=== PATIENT | male | born 1950 | race Caucasian/White ===

== ENCOUNTER 2018-03-21 10:12 | Inpatient (IN) | payer MEDICARE, BC ==
[~2018-03-21] VITALS: Ht 170.2 cm; Wt 66.7 kg
--- NOTE | 2018-03-21 10:15 | NUR ---
AAOX3 C/O SOB AND CHEST PAIN SINCE TUESDAY, TACHYPNEIC, PATIENT APPEARS ANXIOUS AT THIS TIME. SKIN IS WARM AND DRY. PLACED ON THE MONITOR. STARTED IVHL RAC 18G. DR DURANT AT FOR EVAL. PATIENT PLACED ON NR AT 15L/MIN.
[2018-03-21 10:26] LABS: BASOPHILS % (AUTO) 0.6 % (0.0-2.0); EOSINOPHILS % (AUTO) 10.3 % (0.0-6.0); HEMATOCRIT 49 % (39-51); HEMOGLOBIN 16.5 g/dL (13.5-17.5); LYMPHOCYTES # (AUTO) 1.4 /CMM (0.8-4.8); LYMPHOCYTES % (AUTO) 19.4 % (20.0-44.0); MEAN CORPUSCULAR HGB CONC 34 g/dl (31.0-36.0); MEAN CORPUSCULAR VOLUME 88 fL (80-96); MONOCYTES # (AUTO) 0.8 /CMM (0.1-1.30); MONOCYTES % (AUTO) 11.1 % (2.0-12.0); NEUTROPHILS # (AUTO) 4.1 /CMM (1.8-8.9); NEUTROPHILS % (AUTO) 58.6 % (43.0-81.0); PLATELET COUNT (AUTO) 267 /CMM (150-450); RDW COEFFICIENT OF VARIATION 12.7 (11.5-15.0); RED BLOOD CELL COUNT(AUTO) 5.53 MIL/uL (4.5-6.0)
[2018-03-21 10:30] VITALS: BP 137/106
[2018-03-21] MEDS ORDERED: ASPIRIN 325 MG TABLET PO ONE (10:30)
[2018-03-21] MEDS ORDERED: ENALAPRILAT INJ (1.25 MG/ML) 1.25 MG/ML VIAL IV PRN (10:30)
[2018-03-21 10:40] LABS: CHLORIDE 104 mmol/L (98-107); INR 0.95 (0.85-1.15); POTASSIUM 3.9 mmol/L (3.5-5.1); SODIUM SERUM 137 mmol/L (136-145)
[2018-03-21] MEDS ORDERED: AMOX-430 PO (10:42)
[2018-03-21] MEDS ORDERED: TRAM50TA2 PO (10:42)
[2018-03-21] MEDS ORDERED: DULO60CA45 PO (10:42)
[2018-03-21] MEDS ORDERED: MIRT15TA7 PO (10:42)
[2018-03-21] MEDS ORDERED: GABA-534 PO (10:42)
--- NOTE | 2018-03-21 10:42 | NUR ---
RT RECD PT ON ROOM AIR WITH SHORTNESS OF BREATH PLACED ON BIPAP PER MD ORDERS ST 15/ 30% RATE 12. CHULA WELL PT COMFORTABLE NO RESP DISTRESS ATT WILL CONTINUE TO MONITOR Addendum: 03/21/18 at 1045 by RONY OTOOLE RT Amended: Links added.
[2018-03-21 10:44] LABS: ALANINE AMINOTRANSFERASE 22 U/L (12-78); ALBUMIN 3.6 g/dL (3.4-5.0); ALKALINE PHOSPHATASE 94 U/L (46-116); ASPARTATE AMINOTRANSFERASE 23 U/L (15-37); BILIRUBIN,DIRECT 0.1 mg/dL (0.0-0.2); BILIRUBIN,TOTAL 0.4 mg/dL (0.2-1.0); CARBON DIOXIDE 26 mmol/L (21-32); GLUCOSE 136 mg/dL (74-106); LIPASE 115 U/L (73-393); TOTAL PROTEIN, SERUM 7.8 g/dL (6.4-8.2); UREA NITROGEN, BLOOD 11 mg/dL (7-18)
[2018-03-21] MEDS ORDERED: ENALAPRILAT DIHYD. (2.5MG/ML) 1.25 MG/ML VIAL IV ONE (10:44)
[2018-03-21] MEDS ORDERED: ASPIRIN 325 MG TABLET ONE (10:44)
[2018-03-21 10:47] LABS: TROPONIN I < 0.017 ng/mL (0.00-0.056)
--- NOTE | 2018-03-21 11:08 | NUR ---
PANEL ON-CALL PAGED
[2018-03-21] MEDS ORDERED: ALBUTEROL FS 2.5 MG/3 ML VIAL.NEB ONE (11:18)
[2018-03-21] MEDS ORDERED: IPRATROPIUM NEB FS 0.5 MG/2.5 ML AMPUL.NEB ONE (11:18)
[2018-03-21] MEDS ORDERED: IPRATROPIUM NEB FS 0.5 MG/2.5 ML AMPUL.NEB NEB ONE (11:30)
[2018-03-21] MEDS ORDERED: ALBUTEROL FS 2.5 MG/3 ML VIAL.NEB NEB ONE (11:30)
[2018-03-21] MEDS ORDERED: methylPREDNISolone SOD SUCC 125 MG/2ML VIAL IV ONE (11:30)
[2018-03-21] MEDS ORDERED: methylPREDNISolone SOD SUCC 125 MG/2ML VIAL ONE (11:31)
--- NOTE | 2018-03-21 11:46 | NUR ---
CALLED NURSING ANALYTICS SENIOR MANAGER AND REQUESTED A TELE RM FOR THIS PT.
--- NOTE | 2018-03-21 11:48 | NUR ---
PANEL VASCULAR TECH WAS REPAGED
--- NOTE | 2018-03-21 12:01 | NUR ---
ASSIGNED TO TELE #: [id number] DX: CHEST PAIN ACCEPTING MD: DR LAWSON
--- NOTE | 2018-03-21 12:27 | NUR ---
Report given to accountant certified public [id number] for DWIGHT.
--- NOTE | 2018-03-21 12:50 | NUR ---
MENHADEN VESSEL PILOTTEACHER THEATER ARTS NOTES RECEIVED PT FROM ER NURSE IN STABLE CONDITION. NO SOB OR SIGNS OF DISTRESS NOTED. BREATHING IS EVEN AND UNLABORED. PT IS SR ON THE TELE MONITOR WITH A HR OF 83. HE DENIES ANY CHEST PAIN AT THIS TIME. SKIN INTACT. IVS NOTED TO BE PATENT AND INTACT. PT ORIENTED TO ROOM. BED IN LOW LOCKED POSITION, SIDE RAILS UP X2, CALL LIGHT WITHIN REACH. WILL CONTINUE TO MONITOR.
[2018-03-21] MEDS ORDERED: Z GUARD REMEDY 2 OZ OINT TP PRN (13:30)
[2018-03-21] MEDS ORDERED: HYDROCODONE/APAP 5/325MG 1 EACH TABLET PO PRN (13:30)
[2018-03-21] MEDS ORDERED: ONDANSETRON HCL/PF 4 MG/2 ML VIAL IVP PRN (13:30)
[2018-03-21] MEDS ORDERED: ZOLPIDEM TARTRATE 5 MG TABLET PO PRN (13:30)
[2018-03-21] MEDS ORDERED: MAG HYDROX/AL HYDROX/SIMETH 30 ML UDC PO PRN (13:30)
[2018-03-21] MEDS ORDERED: MAGNESIUM HYDROXIDE 30 ML UDC PO PRN (13:30)
[2018-03-21] MEDS ORDERED: ACETAMINOPHEN 325 MG TABLET PO PRN (13:30)
[2018-03-21 16:00] VITALS: BP 89/53
[2018-03-21] MEDS: GABAPENTIN 300 MG CAPSULE PO SCH (17:41)
[2018-03-21] MEDS: ALBUTEROL FS 2.5 MG/3 ML VIAL.NEB NEB PRN (17:51)
[2018-03-21] MEDS: IPRATROPIUM NEB FS 0.5 MG/2.5 ML AMPUL.NEB NEB PRN (17:51)
--- NOTE | 2018-03-21 18:56 | NUR ---
MS RN CLOSING NOTES PT REMAINS STABLE. NO COMPLAINTS OF CHEST PAIN THROUGHOUT SHIFT. HE REMAINS SR ON THE TELE MONITOR. HE DID EXPERIENCE SOME DIFFICULTY BREATHING HOWEVER IT WAS RELIEVED AFTER HIS PRN BREATHING TX. SAFETY MEASURES REMAIN IN PLACE. AT BEDSIDE. WILL ENDORSE TO NIGHTSHIFT NURSE FOR DWIGHT
--- NOTE | 2018-03-21 19:50 | NUR ---
JEWELRY SETTER NOTE: PATIENT RESTING IN BED, NO ACUTE DISTRESS NOTED, FAMILY AT BEDSIDE. BREATHING EVEN AND UNLABORED, NO SOB NOTED. IV TO RAC AND LAC IN PLACE. PATIENT DENIES ANY CHEST PAIN AT THIS TIME. BED LOCKED AND IN LOWEST POSITION, CALL LIGHT IN REACH. WILL CONTINUE TO MONITOR.
[2018-03-21 20:00] VITALS: BP 110/75
[2018-03-21] MEDS: TRAMADOL HCL 50 MG TABLET PO PRN (21:17)
--- NOTE | 2018-03-21 21:30 | NUR ---
ICE SCULPTOR NOTE: PATIENT COMPLAINS OF PAIN TO BACK 06/26, ULTRAM 50MG 1 TAB ORAL GIVEN PER MD ORDER. WILL CONTINUE TO MONITOR.
[2018-03-21] MEDS ORDERED: MIRTAZAPINE 15 MG TABLET PO SCH (22:00)
[2018-03-21] MEDS ORDERED: ENOXAPARIN SODIUM 40 MG/0.4 ML DISP.SYRIN SQ SCH (23:00)
[2018-03-21] MEDS ORDERED: BENZONATATE 100 MG CAPSULE PO PRN (23:00)
--- NOTE | 2018-03-21 23:15 | NUR ---
MARKETING GRAPHICS SPECIALIST NOTE: PATIENT COMPLAINS OF COUGH, SPOKE TO CUSTOMS ENTRY CLERK , JESSICA VILLAREAL, DIONNA AND RECEIVED NEW ORDERS FOR TESSALON PERLE 100MG 1 TAB ORAL TID NEEDED. ALSO RECEIVED ORDER FOR LOVENOX 40 MG SUBCUTANEOUS DAILY. ORDER NOTED AND CARRIED OUT. WILL CONTINUE TO MONITOR.
[2018-03-22] VITALS: BP 114/76
--- NOTE | 2018-03-22 00:35 | NUR ---
CARGO AND CONTAINER INSPECTOR NOTE: PATIENT REQUEST FOR SLEEPING MEDICATION, AMBIEN 5MG 1 TAB ORAL GIVEN PER MD ORDER. WILL CONTINUE TO MONITOR.
[2018-03-22 04:00] VITALS: BP 96/66
--- NOTE | 2018-03-22 06:30 | NUR ---
AIRBORNE SENSOR SPECIALIST NOTE: PATIENT RESTING IN BED, NO ACUTE DISTRESS NOTED. BREATHING EVEN AND UNLABORED, NO SOB NOTED. IV TO RAC AND LAC IN PLACE. PATIENT COMPLAINS OF COUGH, TESSALON 100MG 1CAP ORAL GIVEN PER MD ORDER. BED LOCKED AND IN LOWEST POSITION, CALL LIGHT IN REACH. WILL ENDORSE TO DAY NURSE TO CONTINUE WITH PLAN OF CARE.
[2018-03-22 07:24] LABS: BASOPHILS % (AUTO) 0.1 % (0.0-2.0); HEMATOCRIT 43 % (39-51); HEMOGLOBIN 14.4 g/dL (13.5-17.5); LYMPHOCYTES # (AUTO) 0.9 /CMM (0.8-4.8); LYMPHOCYTES % (AUTO) 10.2 % (20.0-44.0); MEAN CORPUSCULAR HGB CONC 34 g/dl (31.0-36.0); MEAN CORPUSCULAR VOLUME 89 fL (80-96); MONOCYTES # (AUTO) 0.8 /CMM (0.1-1.30); NEUTROPHILS # (AUTO) 7.3 /CMM (1.8-8.9); NEUTROPHILS % (AUTO) 80.7 % (43.0-81.0); PLATELET COUNT (AUTO) 246 /CMM (150-450); RDW COEFFICIENT OF VARIATION 13.3 (11.5-15.0); RED BLOOD CELL COUNT(AUTO) 4.77 MIL/uL (4.5-6.0)
[2018-03-22 07:34] LABS: CALCIUM, SERUM 8.7 mg/dL (8.5-10.1); CREATININE 0.8 mg/dL (0.6-1.3); MAGNESIUM 1.9 mg/dL (1.8-2.4); PHOSPHORUS 3.7 mg/dL (2.5-4.9); POTASSIUM 4.5 mmol/L (3.5-5.1)
--- NOTE | 2018-03-22 07:44 | NUR ---
MSRN NOTES. PT TELE SR 98. PT NPO STATUS REMOVED BY MD RUSSELL AND TEL D/C'D. PT RECEIVED A&0X3, AWAKE AND RESTING IN BED. PT TOLERATING ROOM AIR WITHOUT RESP DISTRESS. PT REPORTS CGHEST PAIN WHEMN DOUGHING . PT WITH IVC AT R FA INTACT AND OPERATIONAL. PT BED IN LOWEST LOCKED POSITION WITH HANDRAILSX2 AND CALL ORELLANA WITHIN REACH. PT BRIEFED ON TODAY'S POC AND IS WITHOUT CONCERN OR COMPLAINT AT THIS TIME. Addendum: 03/22/18 at 0753 by KIRILL MENCHACA RN MSRN NOTES. PT TELE SR 98. PT NPO STATUS REMOVED BY MD RUSSELL AND TEL D/C'D. PT RECEIVED A&0X3, AWAKE AND RESTING IN BED. PT TOLERATING ROOM AIR WITHOUT RESP DISTRESS. PT REPORTS CHEST PAIN WHEN COUGHING . PT WITH IVC AT R FA AND L AC INTACT AND OPERATIONAL. PT REQUESTING TO LEAVE SOON POSSIBLE- CONSIDERING AMA R/T TO WORK NEEDS. PT BED IN LOWEST LOCKED POSITION WITH HANDRAILSX2 AND CALL ORELLANA WITHIN REACH. PT BRIEFED ON TODAY'S POC AND IS WITHOUT CONCERN OR COMPLAINT AT THIS TIME.
[2018-03-22 08:00] VITALS: BP 107/68
[2018-03-22] MEDS: GABAPENTIN 300 MG CAPSULE PO SCH (08:29)
[2018-03-22] MEDS: TRAMADOL HCL 50 MG TABLET PO PRN (08:35)
[2018-03-22] MEDS: ALBUTEROL FS 2.5 MG/3 ML VIAL.NEB NEB PRN (08:38)
[2018-03-22] MEDS: IPRATROPIUM NEB FS 0.5 MG/2.5 ML AMPUL.NEB NEB PRN (08:39)
[2018-03-22] MEDS ORDERED: ALBU8.5H8 INH (08:43)
[2018-03-22] MEDS ORDERED: GUAI-925 PO (08:43)
[2018-03-22] MEDS ORDERED: ASPIRIN 81 MG TAB.CHEW PO SCH (09:00)
[2018-03-22] MEDS ORDERED: DULOXETINE HCL 30 MG CAPSULE.DR PO SCH (09:00)
--- NOTE | 2018-03-22 09:45 | NUR ---
MSROlivia D/C NOTES. PT WITH AT BEDSIDE. PT PREPARED FOR D/C PER MD. PT TOLERATING SHORT TRIAL OF ROOM AIR, PREV WITH 2LPM VIA NC, SAO2 WNL. PT REPORTS CURRENT PAIN MANAGEMENT ADEQUATE. PT IVCX2 REMOVED AND NAD AT SITE. PT BRIEFED ON SOH D/C PACKET, MEDICATIONS, EDUCATIONS AND FOLLOW UP AND VERBALIZING UNDERSTANDING, RESOURCES AND INTENT TO FOLLOW POC. PT SCRIPTS SENT ELECTRONICALLY PER PT REQUEST. PT WITH ALL BELONGINGS AND DOCUMENT SIGNED. PT LEFT WITH FOR TRANSPORT AND BOTH WITHOUT CONCERN OR COMPLAINT AND GRATEFUL FOR CARE.
--- NOTE | 2018-03-22 10:30 | NUR ---
AMBER NOTES. PHARMACY CALLED RELATED TO MISSING E-SCRIPTS, PHARMACIST ABLE TO SEE SCRIPT AT OTHER BRANCH, CONFIRMED MEDICATIONS AND ABLE TO DISPENSE. NO FURTHER ACTION REQUIRED. Addendum: 03/22/18 at 1415 by KIRILL MECNHACA RN PHARMACY- [facility].
[2018-03-22] MEDS ORDERED: ENOXAPARIN SODIUM 40 MG/0.4 ML DISP.SYRIN SQ SCH (21:00)
== END 2018-03-22 09:45 | disposition home or self-care (01) | DRG 189 ==
LOC: ER 10:13 → TELE 12:21 → MED 03-22 09:07
PROVIDERS: ADMIT Family Medicine; ATTEND Family Medicine
DX: J96.00 Acute respiratory failure, unspecified whether with hypoxia or hypercapnia (principal); J44.0 Chronic obstructive pulmonary disease with (acute) lower respiratory infection; J44.1 Chronic obstructive pulmonary disease with (acute) exacerbation; J20.8 Acute bronchitis due to other specified organisms; E78.5 Hyperlipidemia, unspecified; G89.29 Other chronic pain; F17.210 Nicotine dependence, cigarettes, uncomplicated; F32.9 Major depressive disorder, single episode, unspecified; M54.5 Low back pain; Z88.2 Allergy status to sulfonamides
CPT/HCPCS: 36415; 71045-TC; 80048-TC; 80061-TC; 80076-TC; 83690-TC; 83735-TC; 83880; 84100-TC; 84484-TC; 85025-TC; 85730-TC; 87081-TC; 93307-TC; 94660; 94799-TC; A4606; J1650; J2930; J3490; Z7610

== ENCOUNTER 2021-08-01 14:23 | Emergency (ER) | payer MEDICARE, BC ==
[~2021-08-01] VITALS: Ht 177.8 cm; Wt 68.0 kg
[~2021-08-01 14:23] MED LIST: ALBU8.5H8 INH; AMOX-430 PO; DULO60CA45 PO; GABA-534 PO; GUAI-925 PO; MIRT-90 PO; TRAM50TA2 PO
--- NOTE | 2021-08-01 15:25 | NUR ---
BIB C/O R RIB AREA AND R KNEE PAIN S/P FALLING OFF A LADDER APRX 6 FT HIGH 3 DAYS AGO. THE PATIENT RATES RIGHT RIB AND RIGHT KNEE PAINS 8/. WILL CONTINUE TO MONITOR THE PATIENT.
[2021-08-01] MEDS ORDERED: ONDANSETRON 4 MG TAB.RAPDIS SL ONE (15:30)
[2021-08-01] MEDS ORDERED: oxyCODONE/APAP (5/325 MG) 1 UDTAB TABLET PO ONE (15:30)
[2021-08-01] MEDS ORDERED: oxyCODONE/APAP (5/325 MG) 1 UDTAB TABLET ONE (15:43)
[2021-08-01] MEDS ORDERED: ONDANSETRON HCL 4 MG/5 ML SOLUTION ONE (15:43)
[2021-08-01 16:07] LABS: BASOPHILS # (AUTO) 0.1 K/uL (0.0-0.2); EOSINOPHILS % (AUTO) 1.6 % (0.0-6.0); HEMATOCRIT 40 % (39-51); HEMOGLOBIN 13.2 g/dL (13.5-17.5); LYMPHOCYTES # (AUTO) 1.8 K/uL (0.8-4.8); LYMPHOCYTES % (AUTO) 25.1 % (20.0-44.0); MEAN CORPUSCULAR HGB CONC 33 g/dl (31.0-36.0); MEAN CORPUSCULAR VOLUME 92 fL (80-96); MONOCYTES # (AUTO) 0.8 K/uL (0.1-1.30); MONOCYTES % (AUTO) 11.2 % (2.0-12.0); NEUTROPHILS # (AUTO) 4.4 K/uL (1.8-8.9); NEUTROPHILS % (AUTO) 61.1 % (43.0-81.0); PLATELET COUNT (AUTO) 248 K/uL (150-450); RED BLOOD CELL COUNT(AUTO) 4.34 MIL/uL (4.5-6.0); WHITE BLOOD COUNT (AUTO) 7.1 K/uL (4.3-11.0)
[2021-08-01] MEDS ORDERED: IOHEXOL-300 100 ML VIAL IV ONE (16:42)
--- NOTE | 2021-08-01 16:45 | NUR ---
THE PATIENT IS TAKEN TO CT
--- NOTE | 2021-08-01 16:49 | NUR ---
THE PATIENT IS BACK FROM CT
[2021-08-01] MEDS ORDERED: CT SWABBABLE VALVE TRANS SET 1 EA INFUS.SET MC ONE (16:51)
--- NOTE | 2021-08-01 17:19 | NUR ---
THE PATIENT IS TAKEN TO CT
--- NOTE | 2021-08-01 17:30 | NUR ---
THE PATIENT IS BACK FROM CT
[2021-08-01] MEDS ORDERED: OXYC-128 PO (18:16)
--- NOTE | 2021-08-01 18:44 | NUR ---
IV removed. Catheter intact and site benign. Pressure and 4x4 applied to site. No bleeding noted.Patient discharged to home in stable condition. Written and verbal after care instructions given. Patient verbalizes understanding of instruction.
[2021-08-01 18:45] VITALS: BP 124/83
== END 2021-08-01 18:45 | disposition home or self-care (01) ==
LOC: ER 14:35
DX: S30.0XXA Contusion of lower back and pelvis, initial encounter (principal); S70.11XA Contusion of right thigh, initial encounter; S89.81XA Other specified injuries of right lower leg, initial encounter; Z88.2 Allergy status to sulfonamides; Z88.1 Allergy status to other antibiotic agents; Z79.899 Other long term (current) drug therapy; W11.XXXA Fall on and from ladder, initial encounter; Y93.89 Activity, other specified; Y92.89 Other specified places as the place of occurrence of the external cause; Y99.8 Other external cause status
CPT/HCPCS: 36415; 73700; 74177; 80048; 85025; 99285; Q0162; Q9967